=== PATIENT | female | born 1960 | race African-American/Black ===

== ENCOUNTER 2017-03-28 17:52 | Emergency (ER) | payer BC ==
[~2017-03-28] VITALS: Ht 162.6 cm; Wt 91.8 kg
[~2017-03-28 17:52] MED LIST: BENICAR HCT 12.1 TA1 PO
[2017-03-28 17:56] VITALS: TEMP 98
[2017-03-28] MEDS ORDERED: NORVASC 5MG5 MG/TAB PO (18:14)
[2017-03-28] MEDS ORDERED: COZAAR 25MG25 MG/TAB PO (18:15)
[2017-03-28 18:31] LABS: BASO % 0.5 % (0.0-2.0); EOS # 0.1 (0.0-0.7); EOS % 1.3 % (0-4.0); GRAN # 3.1 (1.4-6.5); GRAN % 51.9 % (42.2-75.2); HEMATOCRIT 40.5 % (37.0-47.0); LYMPH # 2.5 (1.2-3.4); LYMPH % 40.6 % (20.0-51.0); MEAN CELL VOLUME 84 fl (80.0-100.0); MEAN CORPUSCULAR HEMOGLOBIN 29 pg (27.0-31.0); MEAN CORPUSCULAR HGB CONC 35 g/dl (33.0-37.0); MEAN PLATELET VOLUME 10.1 fl (7.4-10.4); MONO # 0.3 (0.1-0.6); MONO % 5.5 % (1.7-9.3); PLATELET COUNT 268 K/mm3 (130-400); REDCELL DISTRIBUTION WIDTH-CV 12.6 % (11.5-14.5)
[2017-03-28 18:40] LABS: ADJUSTED CALCIUM 9.5 mg/dL (8.4-10.2); ALANINE AMINOTRANSFERASE 32 U/L (9-52); ALBUMIN 4.4 gm/dL (3.5-5.0); ALKALINE PHOSPHATASE 101 U/L (50-136); ANION GAP 11 mmol/L (7-16); BILIRUBIN,TOTAL 0.7 mg/dL (0.0-1.0); BLOOD UREA NITROGEN 15 mg/dL (7-17); CALCIUM 9.8 mg/dL (8.4-10.2); CARBON DIOXIDE 24 mmol/L (22-30); CHLORIDE 103 mmol/L (98-107); CREATINE KINASE 88 U/L (30-135); CREATININE, serum 0.74 mg/dL (0.52-1.25); GLUCOSE 91 mg/dL (74-106); POTASSIUM 3.7 mmol/L (3.4-5.0); SODIUM 139 mmol/L (137-145); TOTAL PROTEIN 8.1 gm/dL (6.4-8.2)
[2017-03-28 18:52] LABS: TROPONIN-I < 0.012 ng/mL (0.000-0.034)
[2017-03-28] MEDS ORDERED: PREDNISONE20 MG PO (20:10)
[2017-03-28] MEDS ORDERED: NORCO 325 MG-51 TAB PO (20:10)
[2017-03-28 20:11] VITALS: BP 135/101; PULSE 68
== END 2017-03-28 20:19 | disposition home or self-care (01) ==
LOC: COL.ER 17:52
PROVIDERS: Emergency Medicine
DX: M54.12 Radiculopathy, cervical region (principal); I10 Essential (primary) hypertension
CPT/HCPCS: J1885; J2060; J7512

== ENCOUNTER 2017-05-03 11:15 | Outpatient (RCR) | payer BC ==
[~2017-05-03 11:15] MED LIST changes: +COZAAR 25MG25 MG/TAB PO; +NORCO 325 MG-51 TAB PO; +NORVASC 5MG5 MG/TAB PO; +PREDNISONE20 MG PO
== END 2017-07-09 09:50 | disposition home or self-care (01) ==
LOC: MKS.ESL.PT 11:15
DX: S46.812A Strain of other muscles, fascia and tendons at shoulder and upper arm level, left arm, initial encounter (principal)

== ENCOUNTER → 2017-11-12 | Outpatient (CLI) | payer BC | LOC: MC.RAD 13:57 | DX: Z12.31 Encounter for screening mammogram for malignant neoplasm of breast (principal) ==

== ENCOUNTER → 2019-03-24 | Outpatient (CLI) | payer BC | LOC: MC.RAD 08:18 | DX: Z12.31 Encounter for screening mammogram for malignant neoplasm of breast (principal) ==